=== PATIENT | female | born 1985 | race Two or more races ===

== ENCOUNTER 2019-08-13 05:32 | Inpatient (IN) | payer BC ==
[~2019-08-13] VITALS: Ht 162.6 cm; Wt 76.4 kg
[2019-08-13 05:45] VITALS: BP 109/62
[2019-08-13] MEDS ORDERED: LACTATED RINGERS 1,000 ML IV SCH (05:47)
[2019-08-13] MEDS ORDERED: METOCLOPRAMIDE 5 MG/ML, 2ML IV ONE (06:00)
[2019-08-13] MEDS ORDERED: SODIUM CITRATE/CITRIC ACID 30 ML UDC PO ONE (06:00)
[2019-08-13] MEDS ORDERED: LACTATED RINGERS 1,000 ML IVBOLUS ONE (06:00)
[2019-08-13] MEDS ORDERED: METOCLOPRAMIDE 5 MG/ML, 2ML ONE (06:04)
[2019-08-13] MEDS ORDERED: SODIUM CITRATE/CITRIC ACID 30 ML UDC ONE (06:04)
[2019-08-13] MEDS ORDERED: NEWBORN KIT ONE (06:04)
[2019-08-13 06:30] LABS: BASOPHILS # (AUTO) 0.01 x10^3/uL (0-0.1); BASOPHILS % (AUTO) 0 % (0-1); EOSINOPHILS # (AUTO) 0.14 x10^3/uL (0-0.4); EOSINOPHILS % (AUTO) 1 % (1-7); LYMPHOCYTES # (AUTO) 1.59 x10^3/uL (1-3.4); LYMPHOCYTES % (AUTO) 17 % (22-44); MD NO; MEAN CORPUSCULAR HEMOGLOBIN 30.3 pg (27.0-34.8); MEAN CORPUSCULAR HGB CONC 33.1 g/dL (32.4-35.8); MEAN CORPUSCULAR VOLUME 91.5 fL (80-100); MEAN PLATELET VOLUME 7.6 fL (7.4-10.4); MONOCYTES # (AUTO) 0.57 x10^3/uL (0.2-0.8); MONOCYTES % (AUTO) 6 % (2-9); NEUTROPHILS # (AUTO) 7.14 x10^3/uL (1.8-6.8); NEUTROPHILS % (AUTO) 76 % (42-75); PLATELET COUNT 254 x10^3/uL (130-400); RED BLOOD COUNT 3.08 x10^6/uL (3.82-5.3); RED CELL DISTRIBUTION WIDTH 15.8 % (9.6-15.2)
[2019-08-13] MEDS ORDERED: morphine SULFATE/PF 0.5 MG/ML, 10ML ONE (07:08)
[2019-08-13] MEDS ORDERED: OXYTOCIN 30U/ 0.9% NaCL 500ML 500 ML ONE (07:15)
[2019-08-13] MEDS ORDERED: EPINEPHRINE 1 MG/ML, 1ML ONE (07:17)
[2019-08-13] MEDS ORDERED: PHENYLEPHRINE 10 MG/ML ONE (08:20)
[2019-08-13] MEDS ORDERED: OXYTOCIN 10 UNITS/ML, 1ML ONE ×2 (08:20)
[2019-08-13] MEDS ORDERED: ONDANSETRON 2MG/ML, 2ML ONE (08:20)
[2019-08-13] MEDS ORDERED: EPHEDRINE 50 MG/ML, 1ML ONE (08:20)
[2019-08-13] MEDS ORDERED: CEFAZOLIN 1,000 MG ONE (08:20)
[2019-08-13] MEDS ORDERED: WATER-INJECTION,STERILE 10 ML IV ONE ×2 (08:20)
[2019-08-13] MEDS: LACTATED RINGERS 1,000 ML IV SCH ×4 (08:37→18:37)
[2019-08-13] MEDS ORDERED: KETOROLAC 30 MG/1 ML ONE (08:42)
[2019-08-13] MEDS: KETOROLAC 30 MG/1 ML IV SCH ×3 (08:47→21:18)
[2019-08-13] MEDS ORDERED: METHYLERGONOVINE 0.2 MG/ML IM PRN (09:00)
[2019-08-13] MEDS ORDERED: ONDANSETRON 2MG/ML, 2ML IV PRN (09:00)
[2019-08-13] MEDS ORDERED: METOCLOPRAMIDE 5 MG/ML, 2ML IV PRN (09:00)
[2019-08-13] MEDS ORDERED: OXYcodone/APAP 5/325MG TABLET PO PRN (09:00)
[2019-08-13] MEDS ORDERED: ACETAMINOPHEN 325 MG TABLET PO PRN (09:00)
[2019-08-13] MEDS: PRENATAL VIT/IRON/FA 1 EACH TABLET PO SCH (09:00)
[2019-08-13] MEDS ORDERED: MEPERIDINE/PF 50 MG/ML IVPush PRN (09:00)
[2019-08-13] MEDS ORDERED: MISOPROSTOL 200 MCG TABLET PR PRN (09:00)
[2019-08-13] MEDS: OXYTOCIN 30U/ 0.9% NaCL 500ML 500 ML IV SCH ×2 (09:30→18:37)
[2019-08-13 10:40] VITALS: BP 96/61
[2019-08-13] MEDS: OXYcodone/APAP 5/325MG TABLET PO PRN ×3 (11:17→20:50)
[2019-08-13 16:00] VITALS: BP 101/68
[2019-08-13 16:01] LABS: BASOPHILS # (AUTO) 0.01 x10^3/uL (0-0.1); BASOPHILS % (AUTO) 0 % (0-1); EOSINOPHILS % (AUTO) 2 % (1-7); LYMPHOCYTES # (AUTO) 1.61 x10^3/uL (1-3.4); LYMPHOCYTES % (AUTO) 14 % (22-44); MD NO; MEAN CORPUSCULAR HEMOGLOBIN 29.3 pg (27.0-34.8); MEAN CORPUSCULAR HGB CONC 31.7 g/dL (32.4-35.8); MEAN CORPUSCULAR VOLUME 92.4 fL (80-100); MEAN PLATELET VOLUME 7.3 fL (7.4-10.4); MONOCYTES # (AUTO) 0.44 x10^3/uL (0.2-0.8); MONOCYTES % (AUTO) 4 % (2-9); NEUTROPHILS % (AUTO) 81 % (42-75); PLATELET COUNT 245 x10^3/uL (130-400); RED BLOOD COUNT 2.77 x10^6/uL (3.82-5.3); RED CELL DISTRIBUTION WIDTH 15.6 % (9.6-15.2)
[2019-08-13 20:00] VITALS: BP 97/64
[2019-08-13] MEDS: DOCUSATE 100 MG CAPSULE PO PRN (20:48)
[2019-08-14 00:30] VITALS: BP 99/65
[2019-08-14] MEDS: LACTATED RINGERS 1,000 ML IV SCH ×5 (00:37→16:37)
[2019-08-14] MEDS: KETOROLAC 30 MG/1 ML IV SCH ×4 (03:19→21:23)
[2019-08-14 03:30] VITALS: BP 93/62
[2019-08-14] MEDS: OXYTOCIN 30U/ 0.9% NaCL 500ML 500 ML IV SCH ×2 (04:37→14:37)
[2019-08-14] MEDS: SIMETHICONE 80 MG CHEW TAB PO PRN ×2 (05:36→12:55)
[2019-08-14 07:30] VITALS: BP 95/60
[2019-08-14] MEDS: PRENATAL VIT/IRON/FA 1 EACH TABLET PO SCH (08:10)
[2019-08-14] MEDS: DOCUSATE 100 MG CAPSULE PO PRN ×2 (08:11→20:03)
[2019-08-14] MEDS: OXYcodone/APAP 5/325MG TABLET PO PRN ×3 (08:14→18:38)
[2019-08-14 12:20] VITALS: BP 93/57
[2019-08-14 20:00] VITALS: BP 111/73
[2019-08-15] MEDS: SIMETHICONE 80 MG CHEW TAB PO PRN (00:15)
[2019-08-15] MEDS: OXYcodone/APAP 5/325MG TABLET PO PRN ×2 (00:15→07:28)
[2019-08-15 01:30] VITALS: BP 109/75
[2019-08-15] MEDS: KETOROLAC 30 MG/1 ML IV SCH (03:18)
[2019-08-15] MEDS: DOCUSATE 100 MG CAPSULE PO PRN (07:27)
[2019-08-15] MEDS ORDERED: FERROUS SULFATE 325 MG TABLET PO SCH (08:00)
[2019-08-15 08:03] VITALS: BP 107/71
[2019-08-15] MEDS ORDERED: IBUP-1222 PO ×2 (08:45→10:05)
[2019-08-15] MEDS ORDERED: PREN1TAB98 PO (08:46)
[2019-08-15] MEDS ORDERED: OXYC-302 PO (10:02)
[2019-08-15] MEDS ORDERED: DOCU-131 PO (10:02)
[2019-08-15] MEDS ORDERED: FERR324T18 PO (10:03)
[2019-08-15] MEDS ORDERED: IBUPROFEN 800 MG TABLET PO PRN (11:00)
== END 2019-08-15 14:30 | disposition home or self-care (01) | DRG 787 ==
LOC: LDIP 05:32 → 2NW 10:30
PROVIDERS: ADMIT Obstetrics & Gynecology; ATTEND Obstetrics & Gynecology
PROC: 10D00Z1 Extraction of Products of Conception, Low, Open Approach (ICD-10-PCS; principal; 2019-08-13)
DX: O32.1XX0 Maternal care for breech presentation, not applicable or unspecified (principal); D62 Acute posthemorrhagic anemia; O34.211 Maternal care for low transverse scar from previous cesarean delivery; O32.2XX0 Maternal care for transverse and oblique lie, not applicable or unspecified; O99.02 Anemia complicating childbirth; Z37.0 Single live birth; Z3A.39 39 weeks gestation of pregnancy; Z80.0 Family history of malignant neoplasm of digestive organs; Z82.3 Family history of stroke
CPT/HCPCS: 36415; 85025; 86592; 86762; 86850; 86900; 87340; G0378; J0171; J0690; J1885; J2274; J2405; J2370; J2590; J2765; J7120